=== PATIENT | female | born 1940 | race Caucasian/White ===

== ENCOUNTER → 2017-11-27 | Outpatient (CLI) | payer OTHER ==
[~2017-11-27] MED LIST: ACETAMINOPHEN1 EAC4 PO; ADULT LOW DOSE81 M1 PO; CIPRO500 MG PO; DAILY VITAMIN1 EAC8 PO; FISH OIL300 MG PO; FLAGYL500 MG PO; HYDROCHLOROTHIA25 MG PO; MEVACOR10 M1 PO; PLENDIL5 M1 PO; ZESTRIL20 MG PO
== END | disposition home or self-care (01) ==
LOC: EKG 12:45
DX: I05.1 Rheumatic mitral insufficiency (principal); I07.1 Rheumatic tricuspid insufficiency; I70.0 Atherosclerosis of aorta; I06.0 Rheumatic aortic stenosis; I51.7 Cardiomegaly; I27.20 Pulmonary hypertension, unspecified
CPT/HCPCS: 93306